=== PATIENT | male | born 1935 | race Caucasian/White ===

== ENCOUNTER 2023-10-05 18:49 | Inpatient (IN) | payer OTHER ==
[2023-10-05] MEDS ORDERED: PIPERACILLIN/TAZOB 4.5 GM 4.5 GM/100 ML BAG IVPB ONE (20:03)
[2023-10-05 20:09] LABS: HEMATOCRIT 31.1 % (35.4-49); HEMOGLOBIN 9.2 GM/dL (11.7-16.9); MCH 26.4 pg (25.7-33.7); MCHC 29.5 g/dl (32.0-35.9); MEAN CELL VOLUME 89.6 fl (80-96); MEAN PLT VOLUME 8.2 fl (7.5-11.1); PLATELET COUNT 384 10^3/uL (134-434); RBC 3.48 M/mm3 (4.00-5.60); RDW 21.4 % (11.9-15.9)
[2023-10-05] MEDS: PIPERACILLIN/TAZOB 4.5 GM 4.5 GM in DEXTROSE 5%-WATER 100 ML IVPB ONE (20:10)
[2023-10-05 20:16] LABS: VENOUS BASE EXCESS -11.7 mmol/L (-2-2); VENOUS O2 SATURATION 78.2 % (70-80); VENOUS PCO2 65.6 mmHg (38-52)
[2023-10-05 20:18] LABS: INR 1.24 (0.83-1.09); PROTHROMBIN TIME (PATIENT) 14.3 SEC (9.7-13.0); VENOUS PH 7.071 (7.310-7.410); WHITE BLOOD COUNT 33.7 K/mm3 (4.0-10.0)
[2023-10-05 20:20] LABS: ACTIVATED PTT 50.1 SECONDS (25.2-36.5)
[2023-10-05 20:28] LABS: POTASSIUM 5.2 mmol/L (3.5-5.1)
[2023-10-05 20:32] LABS: CALCIUM 9.7 mg/dL (8.5-10.1)
[2023-10-05 20:33] LABS: ALBUMIN 1.7 g/dl (3.4-5.0); BLOOD UREA NITROGEN 24.3 mg/dL (7-18)
[2023-10-05 20:35] LABS: CREATININE 0.9 mg/dL (0.55-1.3)
[2023-10-05 20:37] LABS: BILIRUBIN,TOTAL 0.4 mg/dL (0.2-1)
[2023-10-05 20:38] LABS: TOT PROT 5.7 g/dl (6.4-8.2)
[2023-10-05] MEDS ORDERED: VANCOMYCIN 1 GRAM (PRE-DOCKED) 1,000 MG/250 ML BAG IVPB ONE (20:38)
[2023-10-05] MEDS ORDERED: NOREPINEPHRINE 0.9 % NACL 8 MG/250 ML BAG IVPB ONE (20:39)
[2023-10-05 20:40] LABS: LACTIC ACID 11.7 mmol/L (0.4-2.0)
[2023-10-05] MEDS: NOREPINEPHRINE 0.9 % NACL 8 MG/250 ML BAG IVPB SCH (20:50)
[2023-10-05] MEDS: VANCOMYCIN 1 GRAM (PRE-DOCKED) 1,000 MG/250 ML BAG IVPB ONE (20:51)
[2023-10-05] MEDS: LACTATED RINGERS SOLUTION 1000 ML INFUS.BAG IV ONE (21:03)
[2023-10-05 21:07] LABS: ANISOCYTOSIS 2+; MACROCYTOSIS 0; OVALOCYTE 1+
[2023-10-05] MEDS ORDERED: VANCOMYCIN 1,000 MG in DEXTROSE 5%-WATER - 250 ML IVPB SCH (21:45)
[2023-10-05] MEDS: LACTATED RINGERS SOLUTION 1,000 ML/1,000 ML INFUS.BAG IV SCH (22:56)
[2023-10-06 00:03] LABS: ALLENS TEST POSITIVE; ARTERIAL BLOOD GAS pH 7.289 (7.350-7.450)
[2023-10-06 00:04] LABS: VENT MODE A/C; VENT RATE 24
[2023-10-06 00:06] LABS: ARTERIAL BLOOD GAS PO2 35.5 mmHg (80-100)
[2023-10-06] MEDS: FENTANYL CITRATE/PF 50 MCG/ML VIAL IVPUSH PRN (00:22)
[2023-10-06] MEDS: ENOXAPARIN NA (PORCINE) 30 MG/0.3 ML DISP.SYRIN SQ SCH ×2 (01:30→18:25)
[2023-10-06] MEDS: PIPERACILLIN/TAZOB 4.5 GM 4.5 GM in DEXTROSE 5%-WATER 100 ML IVPB SCH (02:40)
[2023-10-06] MEDS ORDERED: PIPERACILLIN/TAZOB 4.5 GM 4.5 GM in DEXTROSE 5%-WATER 100 ML IVPB SCH (03:00)
[2023-10-06] MEDS: FENTANYL CITRATE/PF 50 MCG/ML VIAL IVPUSH SCH (06:31)
[2023-10-06] MEDS: DEXMEDETOMIDINE PREMIX 400 MCG/100 ML BAG IVPB SCH (06:32)
[2023-10-06 07:33] LABS: HEMATOCRIT 29.6 % (35.4-49); MCH 25.9 pg (25.7-33.7); MCHC 30.4 g/dl (32.0-35.9); MEAN CELL VOLUME 85.3 fl (80-96); MEAN PLT VOLUME 7.7 fl (7.5-11.1); PLATELET COUNT 294 10^3/uL (134-434); RBC 3.47 M/mm3 (4.00-5.60); RDW 20.5 % (11.9-15.9); WHITE BLOOD COUNT 28.7 K/mm3 (4.0-10.0)
[2023-10-06 07:38] LABS: INR 1.3 (0.83-1.09)
[2023-10-06 07:41] LABS: ACTIVATED PTT 35.7 SECONDS (25.2-36.5)
[2023-10-06 07:47] LABS: POTASSIUM 4.1 mmol/L (3.5-5.1)
[2023-10-06 07:49] LABS: ALBUMIN 1.7 g/dl (3.4-5.0); BLOOD UREA NITROGEN 34.3 mg/dL (7-18); CALCIUM 8.8 mg/dL (8.5-10.1)
[2023-10-06 07:51] LABS: CREATININE 0.8 mg/dL (0.55-1.3)
[2023-10-06 07:54] LABS: BILIRUBIN,TOTAL 0.5 mg/dL (0.2-1); TOT PROT 5.4 g/dl (6.4-8.2)
[2023-10-06 08:00] LABS: LACTIC ACID 4.3 mmol/L (0.4-2.0)
[2023-10-06 08:22] LABS: ARTERIAL BLD GAS O2 SATURATION 99.6 % (95-98); ARTERIAL BLOOD GAS BASE EXCESS 1.5 mmol/L (-2-2); ARTERIAL BLOOD GAS PO2 234.2 mmHg (80-100); ARTERIAL BLOOD GAS pH 7.449 (7.350-7.450)
[2023-10-06 08:27] LABS: ALLENS TEST POSITIVE; VENT MODE A/C
[2023-10-06 08:28] LABS: VENT RATE 24
[2023-10-06] MEDS ORDERED: AZITHROMYCIN IVPB 500 MG/250 ML BAG IVPB SCH (10:00)
[2023-10-06] MEDS: PANTOPRAZOLE SODIUM 40 MG VIAL IVPUSH SCH (10:21)
[2023-10-06] MEDS: methylPREDNISolone NA SUCC 125 MG/2 ML VIAL IVPUSH SCH (10:21)
[2023-10-06 14:46] LABS: EPI CELLS 5 /uL (0-25.1); HYALINE CASTS 2 /uL (0-3.1); URINE APPEARANCE TURBID; URINE BILIRUBIN NEGATIVE (NEGATIVE); URINE COLOR DK YELLOW; URINE GLUCOSE (UA) NEGATIVE (NEGATIVE); URINE KETONE TRACE (NEGATIVE); URINE LEUK ESTERASE 2+ (NEGATIVE); URINE NITRITE POSITIVE (NEGATIVE); URINE PROTEIN 2+ (NEGATIVE); URINE WBC 1059 /uL (0-25.8)
[2023-10-06 14:50] LABS: URINE BACTERIA 1000.6 /uL (0-1359); YEAST NEGATIVE (NEGATIVE)
[2023-10-06] MEDS ORDERED: FENTANYL CITRATE/PF 50 MCG/ML VIAL IVPUSH PRN (15:37)
[2023-10-06] MEDS ORDERED: VANCOMYCIN/WATER FOR INJ (PEG) 1,000 MG/200 ML BAG IVPB SCH (21:00)
[2023-10-06] MEDS: ENOXAPARIN NA (PORCINE) 80 MG/0.8 ML DISP.SYRIN SQ SCH (22:00)
[2023-10-06] MEDS: LACTATED RINGERS SOLUTION 1,000 ML/1,000 ML INFUS.BAG IV SCH (22:00)
[2023-10-06] MEDS: PIPERACILLIN/TAZOB 3.375 GM 3.375 GM in DEXTROSE 5%-WATER - 50 ML IVPB SCH (22:00)
[2023-10-07 06:20] LABS: ARTERIAL BLD GAS O2 SATURATION 99.4 % (95-98); ARTERIAL BLOOD GAS BASE EXCESS -1.3 mmol/L (-2-2); ARTERIAL BLOOD GAS pH 7.525 (7.350-7.450)
[2023-10-07 07:37] LABS: HEMATOCRIT 27.9 % (35.4-49); HEMOGLOBIN 8.8 GM/dL (11.7-16.9); MCH 26.5 pg (25.7-33.7); MCHC 31.6 g/dl (32.0-35.9); MEAN CELL VOLUME 83.8 fl (80-96); MEAN PLT VOLUME 8.4 fl (7.5-11.1); PLATELET COUNT 271 10^3/uL (134-434); RBC 3.33 M/mm3 (4.00-5.60); RDW 20.7 % (11.9-15.9); WHITE BLOOD COUNT 16.5 K/mm3 (4.0-10.0)
[2023-10-07 07:51] LABS: POTASSIUM 4.8 mmol/L (3.5-5.1)
[2023-10-07 07:57] LABS: CALCIUM 7.8 mg/dL (8.5-10.1)
[2023-10-07 07:59] LABS: ALBUMIN 1.6 g/dl (3.4-5.0); BLOOD UREA NITROGEN 46.2 mg/dL (7-18); MAGNESIUM 1.9 mg/dL (1.8-2.4)
[2023-10-07 08:02] LABS: CREATININE 0.9 mg/dL (0.55-1.3)
[2023-10-07 08:04] LABS: BILIRUBIN,TOTAL 0.4 mg/dL (0.2-1); TOT PROT 5.2 g/dl (6.4-8.2)
[2023-10-07 09:10] LABS: ANISOCYTOSIS 2+
[2023-10-07] MEDS ORDERED: ENOXAPARIN NA (PORCINE) 40 MG/0.4 ML DISP.SYRIN SQ SCH (10:00)
[2023-10-07] MEDS: VANCOMYCIN/WATER FOR INJ (PEG) 1 GM/200 ML BAG IVPB SCH (13:54)
[2023-10-07] MEDS ORDERED: DEXMEDETOMIDINE PREMIX 400 MCG/100 ML BAG IVPB SCH (14:30)
[2023-10-07 16:29] LABS: BF WBC & OTHER NUCLEATED CELLS 518 /mm3; BODY FLUID MACROPHAGES 1 %; BODY FLUID MESOTHELIAL 1 %; BODY FLUID MONOCYTE 24 %
[2023-10-07] MEDS: CARBIDOPA/LEVODOPA 25/100 TABLET (FP) GT SCH (17:51)
[2023-10-07] MEDS: DONEPEZIL HCL 10 MG TABLET (FP) GT SCH (17:51)
[2023-10-07] MEDS: VANCOMYCIN 1 GM PREMIX - 1 GM/200 ML BAG IVPB SCH (17:52)
[2023-10-07] MEDS: LACTATED RINGERS SOLUTION 1,000 ML/1,000 ML INFUS.BAG IV SCH (19:01)
[2023-10-07] MEDS ORDERED: PIPERACILLIN/TAZOBACTAM 3.375 GM VIAL IVPB ONE (21:21)
[2023-10-07] MEDS: PIPERACILLIN/TAZOB 3.375 GM 3.375 GM in DEXTROSE 5%-WATER - 50 ML IVPB SCH (21:25)
[2023-10-07] MEDS: methylPREDNISolone NA SUCC 40 MG/1 ML VIAL IVPUSH SCH (21:25)
[2023-10-07] MEDS: ENOXAPARIN NA (PORCINE) 80 MG/0.8 ML DISP.SYRIN SQ SCH (21:25)
[2023-10-08] MEDS: PANTOPRAZOLE SODIUM 40 MG VIAL IVPUSH SCH (10:20)
[2023-10-08] MEDS: MULTIVIT-MINERALS ORAL LIQUID PO SCH (10:21)
[2023-10-08] MEDS: ASCORBIC ACID 500 MG TABLET (FP) PO SCH (10:21)
[2023-10-08] MEDS: VANCOMYCIN/WATER FOR INJ (PEG) 1,000 MG/200 ML BAG IVPB SCH (14:47)
[2023-10-09 09:59] LABS: HEMATOCRIT 29.8 % (35.4-49); HEMOGLOBIN 9.4 GM/dL (11.7-16.9); MCH 26.6 pg (25.7-33.7); MCHC 31.6 g/dl (32.0-35.9); MEAN CELL VOLUME 84.1 fl (80-96); MEAN PLT VOLUME 8.4 fl (7.5-11.1); PLATELET COUNT 250 10^3/uL (134-434); RBC 3.54 M/mm3 (4.00-5.60); RDW 20.4 % (11.9-15.9); WHITE BLOOD COUNT 15.7 K/mm3 (4.0-10.0)
[2023-10-09 10:14] LABS: POTASSIUM 3.6 mmol/L (3.5-5.1)
[2023-10-09] MEDS: methylPREDNISolone NA SUCC 40 MG/1 ML VIAL IVPUSH SCH (10:34)
[2023-10-09 10:45] LABS: ALBUMIN 1.7 g/dl (3.4-5.0); CALCIUM 7.6 mg/dL (8.5-10.1)
[2023-10-09 10:46] LABS: BLOOD UREA NITROGEN 41.1 mg/dL (7-18)
[2023-10-09 10:50] LABS: CREATININE 0.8 mg/dL (0.55-1.3)
[2023-10-09 10:51] LABS: BILIRUBIN,TOTAL 0.3 mg/dL (0.2-1)
[2023-10-10] MEDS ORDERED: PIPERACILLIN/TAZOBACTAM 3.375 GM VIAL IVPB ONE (04:42)
[2023-10-10] MEDS: AMANTADINE HCL 100MG/10 ML UNIT DOSE CUPS GT SCH (10:25)
[2023-10-10] MEDS: SCOPOLAMINE HYDROBROMIDE 1 PATCH PATCH.TD72 TP SCH (11:51)
[2023-10-10] MEDS: AMINO ACIDS/PROTEIN HYDROLYS 30 ML LIQUID.PKT GT SCH (11:53)
[2023-10-11 08:57] LABS: PROTHROMBIN TIME (PATIENT) 11.6 SEC (9.7-13.0)
[2023-10-11 09:11] LABS: HEMATOCRIT 29.6 % (35.4-49); HEMOGLOBIN 9.1 GM/dL (11.7-16.9); MCHC 30.7 g/dl (32.0-35.9); MEAN CELL VOLUME 84.6 fl (80-96); PLATELET COUNT 274 10^3/uL (134-434); RDW 20.5 % (11.9-15.9); WHITE BLOOD COUNT 13.6 K/mm3 (4.0-10.0)
[2023-10-11 09:20] LABS: ALBUMIN 1.6 g/dl (3.4-5.0); CALCIUM 7.5 mg/dL (8.5-10.1); MAGNESIUM 2.1 mg/dL (1.8-2.4)
[2023-10-11 09:21] LABS: CREATININE 0.7 mg/dL (0.55-1.3); PHOSPHOROUS 1.7 mg/dL (2.5-4.9)
[2023-10-11 09:23] LABS: BILIRUBIN,TOTAL 0.3 mg/dL (0.2-1); TOT PROT 4.9 g/dl (6.4-8.2)
[2023-10-11] MEDS: VANCOMYCIN/WATER FOR INJ (PEG) 750 MG/150 ML BAG IVPB SCH (10:18)
[2023-10-11] MEDS: INSULIN (LEVEMIR) 100 UNITS/ML UNITS SQ SCH (10:52)
[2023-10-11] MEDS: SODIUM PHOSPHATE - 15 MM in SODIUM CHLORIDE 250 ML IVPB ONE (14:07)
[2023-10-12 08:34] LABS: BASO % 0.1 % (0-2.0); EOS % 1.2 % (0-4.5); HEMATOCRIT 28.7 % (35.4-49); LYMPH % 4.6 % (8-40); MCH 26.9 pg (25.7-33.7); MCHC 31.5 g/dl (32.0-35.9); MEAN CELL VOLUME 85.1 fl (80-96); MEAN PLT VOLUME 8.4 fl (7.5-11.1); MONO % 5.6 % (3.8-10.2); NEUT % 88.5 % (42.8-82.8); PLATELET COUNT 323 10^3/uL (134-434); RBC 3.37 M/mm3 (4.00-5.60); RDW 20.4 % (11.9-15.9); WHITE BLOOD COUNT 11.7 K/mm3 (4.0-10.0)
[2023-10-12 08:41] LABS: POTASSIUM 3.6 mmol/L (3.5-5.1)
[2023-10-12 08:44] LABS: CALCIUM 7.7 mg/dL (8.5-10.1)
[2023-10-12 08:45] LABS: BLOOD UREA NITROGEN 37.3 mg/dL (7-18); MAGNESIUM 1.8 mg/dL (1.8-2.4)
[2023-10-12 08:48] LABS: CREATININE 0.7 mg/dL (0.55-1.3); PHOSPHOROUS 2.2 mg/dL (2.5-4.9)
[2023-10-12] MEDS: ACETAMINOPHEN 1000 MG/100 ML BAG IVPB ONE (14:37)
[2023-10-12] MEDS: SODIUM CHLORIDE 500 ML IV STA (16:40)
[2023-10-12] MEDS ORDERED: ACETAMINOPHEN 1000 MG/100 ML BAG IVPB PRN (21:00)
[2023-10-13 23:07] VITALS: BMI 23.4
[2023-10-15] MEDS: APIXABAN 5 MG TABLET GT SCH (10:09)
[2023-10-16 20:28] VITALS: BP 102/51; PULSE 54; RESP 20; TEMP 98.5
== END 2023-10-16 13:00 | DRG 870 ==
LOC: JER 18:49 → JERBED 19:33 → JICU 21:34 → J5S 10-07 17:44
PROVIDERS: ADMIT Internal Medicine Pulmonary Disease
PROC: 5A1955Z Respiratory Ventilation, Greater than 96 Consecutive Hours (ICD-10-PCS; principal; 2023-10-05)
PROC: 5A12012 Performance of Cardiac Output, Single, Manual (ICD-10-PCS; 2023-10-05)
PROC: 05HY33Z Insertion of Infusion Device into Upper Vein, Percutaneous Approach (ICD-10-PCS; 2023-10-05)
PROC: 0W9B30Z Drainage of Left Pleural Cavity with Drainage Device, Percutaneous Approach (ICD-10-PCS; 2023-10-07)
DX: A41.9 Sepsis, unspecified organism (principal); I46.9 Cardiac arrest, cause unspecified; J96.21 Acute and chronic respiratory failure with hypoxia; J18.9 Pneumonia, unspecified organism; J96.22 Acute and chronic respiratory failure with hypercapnia; R65.21 Severe sepsis with septic shock; J44.0 Chronic obstructive pulmonary disease with (acute) lower respiratory infection; R57.9 Shock, unspecified; I47.20 Ventricular tachycardia, unspecified; J90 Pleural effusion, not elsewhere classified; G93.1 Anoxic brain damage, not elsewhere classified; E87.20 Acidosis, unspecified; R64 Cachexia; Z93.0 Tracheostomy status; G20.A1 Parkinson's disease without dyskinesia, without mention of fluctuations; L89.150 Pressure ulcer of sacral region, unstageable; I48.91 Unspecified atrial fibrillation; F03.90 Unspecified dementia, unspecified severity, without behavioral disturbance, psychotic disturbance, mood disturbance, and anxiety; Z68.23 Body mass index [BMI] 23.0-23.9, adult
CPT/HCPCS: 0241U-QW; 36415; 36600; 70450-TC; 71045-TC-FY; 71046-TC-FY; 71250-TC; 74018-TC-FY; 74176-TC; 80048; 80053; 81003; 82550; 82553; 82803; 82945; 82962; 83605; 83615; 83735; 83986; 84100; 84478; 84484; 85025; 85027; 85610; 85730; 86850; 86900; 86901; 87040; 87070; 87075; 87086; 87186; 87205; 87635; 87899; 88108; 88305-TC; 93005; 93010; 94002; 99285-25; G0480; J0131

== ENCOUNTER 2023-10-30 15:14 | Inpatient (IN) | payer OTHER, MEDICARE ==
[2023-10-30 16:43] LABS: VENOUS BASE EXCESS -1.2 mmol/L (-2-2); VENOUS O2 SATURATION 60.6 % (70-80); VENOUS PCO2 58.9 mmHg (38-52); VENOUS PH 7.266 (7.310-7.410)
[2023-10-30 16:45] LABS: HEMATOCRIT 26.6 % (35.4-49); HEMOGLOBIN 7.9 GM/dL (11.7-16.9); MCH 25.8 pg (25.7-33.7); MCHC 29.8 g/dl (32.0-35.9); MEAN CELL VOLUME 86.6 fl (80-96); MEAN PLT VOLUME 8.5 fl (7.5-11.1); PLATELET COUNT 395 10^3/uL (134-434); RBC 3.07 M/mm3 (4.00-5.60); RDW 20.3 % (11.9-15.9); WHITE BLOOD COUNT 16.1 K/mm3 (4.0-10.0)
[2023-10-30 16:55] LABS: INR 1.86 (0.83-1.09); PROTHROMBIN TIME (PATIENT) 20.6 SEC (9.7-13.0)
[2023-10-30 16:58] LABS: ACTIVATED PTT 46.9 SECONDS (25.2-36.5)
[2023-10-30] MEDS ORDERED: PIPERACILLIN/TAZOB 4.5 GM 4.5 GM/100 ML BAG IVPB ONE (17:04)
[2023-10-30 17:11] LABS: POTASSIUM 4.3 mmol/L (3.5-5.1)
[2023-10-30 17:13] LABS: ALBUMIN 1.2 g/dl (3.4-5.0); BLOOD UREA NITROGEN 53.6 mg/dL (7-18); CALCIUM 8.3 mg/dL (8.5-10.1)
[2023-10-30 17:16] LABS: CREATININE 0.8 mg/dL (0.55-1.3)
[2023-10-30 17:17] LABS: LACTIC ACID 3.8 mmol/L (0.4-2.0)
[2023-10-30] MEDS: PIPERACILLIN/TAZOB 4.5 GM 4.5 GM in DEXTROSE 5%-WATER 100 ML IVPB ONE (17:17)
[2023-10-30 17:18] LABS: BILIRUBIN,TOTAL 0.3 mg/dL (0.2-1); TOT PROT 4.9 g/dl (6.4-8.2)
[2023-10-30 17:54] LABS: ARTERIAL BLD GAS O2 SATURATION 82.1 % (95-98); ARTERIAL BLOOD GAS BASE EXCESS 3.9 mmol/L (-2-2); ARTERIAL BLOOD GAS PO2 48.5 mmHg (80-100); ARTERIAL BLOOD GAS pH 7.364 (7.350-7.450)
[2023-10-30 17:59] LABS: ANISOCYTOSIS 2+; MACROCYTOSIS 1+; OVALOCYTE 1+
[2023-10-30 18:03] LABS: PLATELET ESTIMATE ADEQUATE
[2023-10-30] MEDS: SODIUM CHLORIDE 0.9% 500 ML INFUS.BAG IV ONE (18:51)
[2023-10-30] MEDS ORDERED: NOREPINEPHRINE 0.9 % NACL 8 MG/250 ML BAG IVPB SCH (20:15)
[2023-10-30 20:28] LABS: HEMATOCRIT 27.9 % (35.4-49); HEMOGLOBIN 8.3 GM/dL (11.7-16.9); MCH 25.5 pg (25.7-33.7); MCHC 29.6 g/dl (32.0-35.9); MEAN CELL VOLUME 86.2 fl (80-96); MEAN PLT VOLUME 8.1 fl (7.5-11.1); PLATELET COUNT 466 10^3/uL (134-434); RBC 3.24 M/mm3 (4.00-5.60); RDW 20.2 % (11.9-15.9); WHITE BLOOD COUNT 27.4 K/mm3 (4.0-10.0)
[2023-10-30 20:44] LABS: POTASSIUM 4.6 mmol/L (3.5-5.1)
[2023-10-30 20:47] LABS: BLOOD UREA NITROGEN 55.4 mg/dL (7-18); CALCIUM 8.2 mg/dL (8.5-10.1); MAGNESIUM 1.9 mg/dL (1.8-2.4)
[2023-10-30 20:50] LABS: PHOSPHOROUS 4.6 mg/dL (2.5-4.9)
[2023-10-30 20:51] LABS: CREATININE 0.9 mg/dL (0.55-1.3)
[2023-10-30 21:05] LABS: LACTIC ACID 4.4 mmol/L (0.4-2.0)
[2023-10-30 21:34] LABS: ANISOCYTOSIS 2+; OVALOCYTE 1+
[2023-10-30 21:38] LABS: PLATELET ESTIMATE ADEQUATE
[2023-10-30] MEDS: NOREPINEPHRINE BITARTRATE/D5W 8 MG/250 ML BAG IVPB SCH (22:00)
[2023-10-30] MEDS: MUPIROCIN 2% TOPICAL OINTMENT FOR DECOLONIZATION NS SCH (23:03)
[2023-10-30] MEDS: CHLORHEXIDINE GLUCONATE 4% CLEANSER FOR DECOLONIZATION TP SCH (23:03)
[2023-10-30] MEDS: FENTANYL NS IVPB 500 MCG/100 ML BAG IVPB SCH (23:04)
[2023-10-30] MEDS ORDERED: AMIODARONE IN DEXTROSE,ISO-OSM 150 MG/100 ML BAG ONE (23:54)
[2023-10-30] MEDS ORDERED: AMIODARONE IN DEXTROSE,ISO-OSM 360 MG/200 ML BAG ONE (23:58)
[2023-10-31 00:21] LABS: HEMATOCRIT 29.2 % (35.4-49); HEMOGLOBIN 8.5 GM/dL (11.7-16.9); MCH 25.2 pg (25.7-33.7); MCHC 29.3 g/dl (32.0-35.9); MEAN CELL VOLUME 86.1 fl (80-96); MEAN PLT VOLUME 8.4 fl (7.5-11.1); PLATELET COUNT 639 10^3/uL (134-434); RBC 3.39 M/mm3 (4.00-5.60); RDW 20.4 % (11.9-15.9)
[2023-10-31] MEDS: LACTATED RINGERS SOLUTION 1000 ML INFUS.BAG IV ONE ×2 (00:21→01:26)
[2023-10-31] MEDS: ALBUMIN HUMAN 5% 250 ML IV SOLUTION IV ONE ×2 (00:22→02:30)
[2023-10-31 00:24] LABS: ARTERIAL BLD GAS O2 SATURATION 94.9 % (95-98); ARTERIAL BLOOD GAS BASE EXCESS -3.8 mmol/L (-2-2); ARTERIAL BLOOD GAS PO2 86.2 mmHg (80-100); ARTERIAL BLOOD GAS pH 7.254 (7.350-7.450)
[2023-10-31 00:26] LABS: WHITE BLOOD COUNT 37.9 K/mm3 (4.0-10.0)
[2023-10-31] MEDS: MAGNESIUM SULF 50% (8.12 MEQ/2 ML-1 GM VIAL) IVPB ONE (00:29)
[2023-10-31] MEDS: AMIODARONE IN DEXTROSE,ISO-OSM 150 MG/100 ML BAG IVPB ONE (00:30)
[2023-10-31] MEDS ORDERED: VANCOMYCIN 1,000 MG in DEXTROSE 5%-WATER - 250 ML IVPB ONE (00:59)
[2023-10-31] MEDS: VASopressin 40 UNITS/100 ML BAG IV SCH (01:00)
[2023-10-31] MEDS: AMIODARONE IN DEXTROSE,ISO-OSM 360 MG/200 ML BAG IV SCH ×3 (01:24→09:54)
[2023-10-31] MEDS ORDERED: PIPERACILLIN/TAZOB 3.375 GM 3.375 GM in DEXTROSE 5%-WATER - 50 ML IVPB SCH (02:00)
[2023-10-31] MEDS: VANCOMYCIN 1,000 MG in DEXTROSE 5%-WATER - 250 ML IVPB ONE ×2 (02:29→02:30)
[2023-10-31] MEDS: PIPERACILLIN/TAZOB 4.5 GM 4.5 GM in DEXTROSE 5%-WATER 100 ML IVPB SCH (02:30)
[2023-10-31 04:02] LABS: EPI CELLS 19 /uL (0-25.1); HYALINE CASTS 1 /uL (0-3.1); URINE APPEARANCE CLOUDY; URINE BACTERIA 4 /uL (0-1359); URINE BILIRUBIN NEGATIVE (NEGATIVE); URINE COLOR YELLOW; URINE GLUCOSE (UA) NEGATIVE (NEGATIVE); URINE KETONE NEGATIVE (NEGATIVE); URINE LEUK ESTERASE 1+ (NEGATIVE); URINE NITRITE NEGATIVE (NEGATIVE); URINE PROTEIN TRACE (NEGATIVE); URINE UROBILINOGEN 0.2 mg/dL (0.2-1.0); URINE WBC 49 /uL (0-25.8)
[2023-10-31 04:40] LABS: URINE RBC 33 /uL (0-23.9)
[2023-10-31 05:41] LABS: ANISOCYTOSIS 3+; MACROCYTOSIS 0; OVALOCYTE 1+
[2023-10-31 06:25] LABS: ARTERIAL BLOOD GAS BASE EXCESS -5.8 mmol/L (-2-2); ARTERIAL BLOOD GAS PO2 181.4 mmHg (80-100); ARTERIAL BLOOD GAS pH 7.238 (7.350-7.450)
[2023-10-31 06:27] LABS: VENT MODE A/C; VENT RATE 20
[2023-10-31 06:45] LABS: HEMATOCRIT 26.5 % (35.4-49); HEMOGLOBIN 7.8 GM/dL (11.7-16.9); MCH 25.4 pg (25.7-33.7); MCHC 29.4 g/dl (32.0-35.9); MEAN CELL VOLUME 86.4 fl (80-96); MEAN PLT VOLUME 8.3 fl (7.5-11.1); PLATELET COUNT 557 10^3/uL (134-434); RBC 3.06 M/mm3 (4.00-5.60); RDW 20.6 % (11.9-15.9)
[2023-10-31 06:49] LABS: WHITE BLOOD COUNT 34.1 K/mm3 (4.0-10.0)
[2023-10-31 07:19] LABS: POTASSIUM 5.4 mmol/L (3.5-5.1)
[2023-10-31 07:21] LABS: CALCIUM 8.2 mg/dL (8.5-10.1)
[2023-10-31 07:22] LABS: BLOOD UREA NITROGEN 58.9 mg/dL (7-18); MAGNESIUM 2.7 mg/dL (1.8-2.4)
[2023-10-31 07:25] LABS: CREATININE 1.1 mg/dL (0.55-1.3); PHOSPHOROUS 5.8 mg/dL (2.5-4.9)
[2023-10-31 07:26] LABS: BILIRUBIN,TOTAL 0.5 mg/dL (0.2-1); TOT PROT 4.9 g/dl (6.4-8.2)
[2023-10-31 07:49] LABS: ALBUMIN 1.6 g/dl (3.4-5.0)
[2023-10-31 08:16] LABS: INR 1.66 (0.83-1.09); PROTHROMBIN TIME (PATIENT) 18.5 SEC (9.7-13.0)
[2023-10-31 08:19] LABS: ACTIVATED PTT 44.6 SECONDS (25.2-36.5)
[2023-10-31] MEDS: PANTOPRAZOLE SODIUM 40 MG VIAL IVPUSH SCH (09:13)
[2023-10-31 09:14] LABS: ANISOCYTOSIS 2+; MACROCYTOSIS 0; OVALOCYTE 1+
[2023-10-31] MEDS: FLUDROCORTISONE ACETATE 0.1 MG TABLET (FP) GT SCH (10:16)
[2023-10-31] MEDS: HYDROCORTISONE SOD SUCCINATE 100 MG/2 ML VIAL IVPUSH SCH (10:16)
[2023-10-31] MEDS: SODIUM CHLORIDE 1,000 ML IV SCH (10:44)
[2023-10-31] MEDS: HEPARIN NA (PORCINE) 5,000 UNITS/ML 1ML VIAL SQ SCH (14:41)
[2023-10-31] MEDS: PIPERACILLIN/TAZOB 3.375 GM 3.375 GM in DEXTROSE 5%-WATER - 50 ML IVPB SCH (17:30)
[2023-11-01 06:33] LABS: ARTERIAL BLD GAS O2 SATURATION 99.7 % (95-98); ARTERIAL BLOOD GAS BASE EXCESS -4.4 mmol/L (-2-2); ARTERIAL BLOOD GAS PO2 338.9 mmHg (80-100); ARTERIAL BLOOD GAS pH 7.306 (7.350-7.450)
[2023-11-01 06:39] LABS: ALLENS TEST POSITIVE
[2023-11-01 06:40] LABS: VENT MODE A/C
[2023-11-01 06:41] LABS: VENT RATE 20
[2023-11-01 07:15] LABS: POTASSIUM 4.5 mmol/L (3.5-5.1)
[2023-11-01 07:20] LABS: BLOOD UREA NITROGEN 73.7 mg/dL (7-18); CALCIUM 7.9 mg/dL (8.5-10.1)
[2023-11-01 07:21] LABS: ALBUMIN 1.3 g/dl (3.4-5.0); MAGNESIUM 2.6 mg/dL (1.8-2.4)
[2023-11-01 07:23] LABS: PHOSPHOROUS 5.3 mg/dL (2.5-4.9)
[2023-11-01 07:24] LABS: CREATININE 1.2 mg/dL (0.55-1.3)
[2023-11-01 07:25] LABS: BILIRUBIN,TOTAL 0.6 mg/dL (0.2-1)
[2023-11-01 07:27] LABS: TOT PROT 4.7 g/dl (6.4-8.2)
[2023-11-01 07:30] LABS: HEMATOCRIT 24.1 % (35.4-49); HEMOGLOBIN 7.3 GM/dL (11.7-16.9); MCH 25.7 pg (25.7-33.7); MCHC 30.2 g/dl (32.0-35.9); MEAN PLT VOLUME 8.2 fl (7.5-11.1); PLATELET COUNT 457 10^3/uL (134-434); RBC 2.84 M/mm3 (4.00-5.60); RDW 20.4 % (11.9-15.9)
[2023-11-01] MEDS: PIPERACILLIN/TAZOB 4.5 GM 4.5 GM in DEXTROSE 5%-WATER 100 ML IVPB SCH (07:30)
[2023-11-01] MEDS: CIPROFLOXACIN 400 MG/D5W 400 MG/200 ML IVPB IVPB ONE (07:30)
[2023-11-01 08:04] LABS: WHITE BLOOD COUNT 30.3 K/mm3 (4.0-10.0)
[2023-11-01 10:20] LABS: ANISOCYTOSIS 0; HELMET CELLS 0; HOWELL-JOLLY BODIES 0; MACROCYTOSIS 0; OVALOCYTE 0; ROULEAU 0; SICKELED CELLS 0; TARGET CELLS 0; TEAR DROP CELLS 0; TOXIC GRANULATION 0
[2023-11-01] MEDS: VANCOMYCIN/WATER 1250 MG 1,250 MG/250 ML BAG IVPB ONE (14:24)
[2023-11-02 07:25] LABS: HEMATOCRIT 23.8 % (35.4-49); MCH 25.1 pg (25.7-33.7); MCHC 29.5 g/dl (32.0-35.9); MEAN CELL VOLUME 84.9 fl (80-96); MEAN PLT VOLUME 8.2 fl (7.5-11.1); PLATELET COUNT 365 10^3/uL (134-434); RBC 2.81 M/mm3 (4.00-5.60); RDW 19.8 % (11.9-15.9)
[2023-11-02 07:29] LABS: POTASSIUM 3.9 mmol/L (3.5-5.1); WHITE BLOOD COUNT 30.5 K/mm3 (4.0-10.0)
[2023-11-02 07:32] LABS: CALCIUM 7.7 mg/dL (8.5-10.1)
[2023-11-02 07:33] LABS: ALBUMIN 1.3 g/dl (3.4-5.0); BLOOD UREA NITROGEN 85.2 mg/dL (7-18); MAGNESIUM 2.5 mg/dL (1.8-2.4)
[2023-11-02 07:35] LABS: PHOSPHOROUS 5.4 mg/dL (2.5-4.9)
[2023-11-02 07:36] LABS: CREATININE 1.3 mg/dL (0.55-1.3)
[2023-11-02 07:37] LABS: BILIRUBIN,TOTAL 0.3 mg/dL (0.2-1); TOT PROT 4.7 g/dl (6.4-8.2)
[2023-11-02] MEDS: ACETAMINOPHEN 1000 MG/100 ML BAG IVPB ONE (08:41)
[2023-11-02 09:00] LABS: ANISOCYTOSIS 3+; MACROCYTOSIS 0
[2023-11-02 11:55] LABS: HEMATOCRIT 23.5 % (35.4-49); MCH 25.4 pg (25.7-33.7); MCHC 29.7 g/dl (32.0-35.9); MEAN CELL VOLUME 85.6 fl (80-96); MEAN PLT VOLUME 8.1 fl (7.5-11.1); PLATELET COUNT 330 10^3/uL (134-434); RBC 2.74 M/mm3 (4.00-5.60); RDW 20.3 % (11.9-15.9); WHITE BLOOD COUNT 26.6 K/mm3 (4.0-10.0)
[2023-11-02] MEDS: LACTATED RINGERS SOLUTION 1,000 ML/1,000 ML INFUS.BAG IV SCH (12:00)
[2023-11-02] MEDS: VANCOMYCIN/WATER 1250 MG 1,250 MG/250 ML BAG IVPB ONE (14:03)
[2023-11-03 07:16] LABS: HEMATOCRIT 25.3 % (35.4-49); HEMOGLOBIN 7.7 GM/dL (11.7-16.9); MCH 25.9 pg (25.7-33.7); MCHC 30.5 g/dl (32.0-35.9); MEAN CELL VOLUME 84.8 fl (80-96); PLATELET COUNT 368 10^3/uL (134-434); RBC 2.98 M/mm3 (4.00-5.60); RDW 20.3 % (11.9-15.9)
[2023-11-03 07:29] LABS: WHITE BLOOD COUNT 31.9 K/mm3 (4.0-10.0)
[2023-11-03 07:33] LABS: POTASSIUM 3.3 mmol/L (3.5-5.1)
[2023-11-03 07:37] LABS: CALCIUM 7.3 mg/dL (8.5-10.1)
[2023-11-03 07:38] LABS: ALBUMIN 1.3 g/dl (3.4-5.0); BLOOD UREA NITROGEN 96.8 mg/dL (7-18); MAGNESIUM 2.7 mg/dL (1.8-2.4)
[2023-11-03 07:41] LABS: CREATININE 1.5 mg/dL (0.55-1.3); PHOSPHOROUS 5.4 mg/dL (2.5-4.9)
[2023-11-03 07:42] LABS: BILIRUBIN,TOTAL 0.3 mg/dL (0.2-1); TOT PROT 4.5 g/dl (6.4-8.2)
[2023-11-03] MEDS: KCL 20 MEQ PREMIX BAG 20 MEQ/100 ML INFUS.BAG IVPB SCH (08:19)
[2023-11-03 09:26] LABS: ANISOCYTOSIS 2+; MACROCYTOSIS 0
[2023-11-03] MEDS: MIDODRINE HCL 5 MG TABLET PO SCH ×2 (12:24→12:28)
[2023-11-03 13:11] VITALS: BMI 24.9
[2023-11-04 07:27] LABS: HEMATOCRIT 30.2 % (35.4-49); HEMOGLOBIN 8.5 GM/dL (11.7-16.9); MCH 25.2 pg (25.7-33.7); MCHC 28.2 g/dl (32.0-35.9); MEAN CELL VOLUME 89.6 fl (80-96); MEAN PLT VOLUME 9.8 fl (7.5-11.1); PLATELET COUNT 417 10^3/uL (134-434); RBC 3.37 M/mm3 (4.00-5.60)
[2023-11-04 07:33] LABS: POTASSIUM 3.8 mmol/L (3.5-5.1)
[2023-11-04 07:37] LABS: ALBUMIN 1.3 g/dl (3.4-5.0); BLOOD UREA NITROGEN 100.8 mg/dL (7-18); MAGNESIUM 2.7 mg/dL (1.8-2.4)
[2023-11-04 07:40] LABS: CREATININE 1.8 mg/dL (0.55-1.3); PHOSPHOROUS 6.8 mg/dL (2.5-4.9)
[2023-11-04 07:41] LABS: BILIRUBIN,TOTAL 0.4 mg/dL (0.2-1); TOT PROT 4.8 g/dl (6.4-8.2)
[2023-11-04 07:46] LABS: WHITE BLOOD COUNT 67.7 K/mm3 (4.0-10.0)
[2023-11-04 09:20] LABS: ANISOCYTOSIS 2+; MACROCYTOSIS 1+
[2023-11-05 06:49] LABS: HEMATOCRIT 32.4 % (35.4-49); MCH 25.3 pg (25.7-33.7); MCHC 24.5 g/dl (32.0-35.9); MEAN CELL VOLUME 102.9 fl (80-96); MEAN PLT VOLUME 10.5 fl (7.5-11.1); PLATELET COUNT 271 10^3/uL (134-434); RBC 3.15 M/mm3 (4.00-5.60); RDW 21.9 % (11.9-15.9)
[2023-11-05 06:50] LABS: CHLORIDE 101 mmol/L (98-107); POTASSIUM 5.6 mmol/L (3.5-5.1); SODIUM 137 mmol/L (136-145)
[2023-11-05 06:55] LABS: CALCIUM 8.6 mg/dL (8.5-10.1)
[2023-11-05 06:56] LABS: ANION GAP 27 mmol/L (4-13); BLOOD UREA NITROGEN 97.6 mg/dL (7-18); CO2 9 mmol/L (21-32); GLUCOSE,RANDOM 62 mg/dL (74-106); MAGNESIUM 3.3 mg/dL (1.8-2.4)
[2023-11-05 06:59] LABS: CREATININE 2.1 mg/dL (0.55-1.3); SGOT/AST 562 U/L (15-37); SGPT/ALT 84 U/L (13-61)
[2023-11-05 07:00] LABS: TOT PROT 4.2 g/dl (6.4-8.2)
[2023-11-05 07:01] LABS: BILIRUBIN,TOTAL 0.6 mg/dL (0.2-1)
[2023-11-05 07:25] LABS: ALK PHOS 311 U/L (45-117); PHOSPHOROUS 10.4 mg/dL (2.5-4.9)
[2023-11-05] MEDS: VANCOMYCIN/WATER 1250 MG 1,250 MG/250 ML BAG IVPB ONE (08:39)
[2023-11-05] MEDS: SEVELAMER CARBONATE 0.8 GM POWDER PACKET PO ONE (08:39)
[2023-11-05 08:43] LABS: ANISOCYTOSIS 1+; MACROCYTOSIS 1+
[2023-11-05 10:08] VITALS: BP 80/36; PULSE 50; RESP 20; TEMP 89.5
[2023-11-05] MEDS: MORPHINE 100 MG/100 ML MG IVPB SCH (10:58)
== END 2023-11-05 12:20 | disposition expired | DRG 870 ==
LOC: JER 15:14 → JERBED 17:33 → JICU 19:19
PROVIDERS: ADMIT Internal Medicine Pulmonary Disease; ATTEND Internal Medicine Pulmonary Disease
PROC: 06HM33Z Insertion of Infusion Device into Right Femoral Vein, Percutaneous Approach (ICD-10-PCS; principal; 2023-10-30)
PROC: 5A1955Z Respiratory Ventilation, Greater than 96 Consecutive Hours (ICD-10-PCS; 2023-10-30)
PROC: B51BZZA Fluoroscopy of Right Lower Extremity Veins, Guidance (ICD-10-PCS; 2023-10-30)
PROC: 0B21XFZ Change Tracheostomy Device in Trachea, External Approach (ICD-10-PCS; 2023-10-30)
PROC: 05HN33Z Insertion of Infusion Device into Left Internal Jugular Vein, Percutaneous Approach (ICD-10-PCS; 2023-11-03)
PROC: B544ZZA Ultrasonography of Left Jugular Veins, Guidance (ICD-10-PCS; 2023-11-03)
DX: A41.89 Other specified sepsis (principal); J96.21 Acute and chronic respiratory failure with hypoxia; R65.21 Severe sepsis with septic shock; J96.22 Acute and chronic respiratory failure with hypercapnia; J98.11 Atelectasis; T17.490A Other foreign object in trachea causing asphyxiation, initial encounter; G93.1 Anoxic brain damage, not elsewhere classified; N17.9 Acute kidney failure, unspecified; J90 Pleural effusion, not elsewhere classified; E87.29 Other acidosis; J95.851 Ventilator associated pneumonia; J44.9 Chronic obstructive pulmonary disease, unspecified; I46.9 Cardiac arrest, cause unspecified; G20.A1 Parkinson's disease without dyskinesia, without mention of fluctuations; A49.02 Methicillin resistant Staphylococcus aureus infection, unspecified site; I69.391 Dysphagia following cerebral infarction; R13.19 Other dysphagia; D64.9 Anemia, unspecified; E83.41 Hypermagnesemia; E83.39 Other disorders of phosphorus metabolism; E78.5 Hyperlipidemia, unspecified; L89.150 Pressure ulcer of sacral region, unstageable; R62.7 Adult failure to thrive; Z68.24 Body mass index [BMI] 24.0-24.9, adult; Z93.1 Gastrostomy status; Z93.0 Tracheostomy status
CPT/HCPCS: 0241U-QW; 36415; 36600; 71045-TC-FY; 80048; 80053; 81003; 82272; 82550; 82803; 82962; 83605; 83735; 84100; 84484; 85025; 85027; 85610; 85730; 86850; 86900; 86901; 87040; 87070; 87077; 87081; 87086; 87186; 87205; 87493; 93005; 93010; 94002; 99291; G0480; J0131; J0282; J1644; J3490